=== PATIENT | female | born 1970 | race Two or more races ===

== ENCOUNTER 2022-06-26 11:11 | Outpatient (CLI) | payer OTHER | END 2022-06-27 15:05 | disposition home or self-care (01) | LOC: SONOGRAMA 11:11 | PROVIDERS: ATTEND Pathology Anatomic Pathology & Clinical Pathology | DX: E07.9 Disorder of thyroid, unspecified (principal); D34 Benign neoplasm of thyroid gland; E06.3 Autoimmune thyroiditis; E04.2 Nontoxic multinodular goiter ==

== ENCOUNTER 2023-02-23 10:17 | Outpatient (CLI) | payer OTHER | END 2023-02-23 10:23 | disposition home or self-care (01) | LOC: SONOGRAMA 10:17 | PROVIDERS: ATTEND Pathology Anatomic Pathology & Clinical Pathology | DX: D34 Benign neoplasm of thyroid gland (principal); E04.9 Nontoxic goiter, unspecified ==